=== PATIENT | female | born 1970 | race Caucasian/White ===

== ENCOUNTER 2018-04-12 05:51 | Day surgery (SDC) | END 2018-04-12 10:40 | disposition home or self-care (01) ==

== ENCOUNTER 2018-05-20 18:41 | Emergency (ER) | payer OTHER ==
[~2018-05-20] VITALS: Ht 149.9 cm; Wt 57.4 kg
[~2018-05-20 18:41] MED LIST: FAMO-96 PO
[2018-05-20 18:44] VITALS: Ht 149.9 cm; Wt 57.4 kg
[2018-05-20] MEDS ORDERED: ONDANSETRON 4 MG INJ IV STA (21:29)
[2018-05-20] MEDS ORDERED: LIDOCAINE/MYLANTA 40 ML BTL PO STA (21:29)
--- NOTE | 2018-05-20 23:33 | ERD ---
ER Documentation Chief Complaint Chief Complaint epigastric pain for months, worse today w/ dizziness. no n/v/d HPI 47-year-old female with a history of recurrent gastritis who presents for evaluation of epigastric pain. Patient is currently taking a PPI for pain, she denies fever, she denies nausea vomiting. She had a recent endoscopy, which according to her only had gastritis, she has history of a cholecystectomy. She denies urinary symptoms. ROS All systems reviewed and are negative except as per history of present illness. Medications Home Meds Active Scripts Famotidine* (Pepcid*) 20 Mg Tablet, 20 MG PO BID for 30 Days, TAB Prov:ROBERT ESPARZA MD 05/20/18 Famotidine* (Pepcid*) 20 Mg Tablet, 20 MG PO BID for 15 Days, TAB Prov:RUBENS JARRELL 07/04/15 Allergies Allergies: Coded Allergies: No Known Allergy (Unverified , 07/04/15) PMhx/Soc History of Surgery: Yes (CHOLECYSTECTOMY/EGD) Anesthesia Reaction: No Hx Neurological Disorder: No Hx Respiratory Disorders: No Hx Cardiac Disorders: No Hx Psychiatric Problems: No Hx Miscellaneous Medical Probl: Yes (GASTRITIS) Hx Alcohol Use: No Hx Substance Use: No Hx Tobacco Use: No Smoking Status: Never smoker Physical Exam Vitals Vital Signs Date Temp Pulse Resp B/P (MAP) Pulse Ox O2 O2 Flow FiO2 Time Delivery Rate 05/20/18 97.3 74 16 132/75 99 18:44 (94) Physical Exam Const: No acute distress Head: Atraumatic Eyes: Normal Conjunctiva ENT: Normal External Ears, Nose and Mouth. Neck: Full range of motion. No meningismus. Resp: Clear to auscultation bilaterally Cardio: Regular rate and rhythm, no murmurs Abd: Soft, mild epigastric tenderness, non distended. Normal bowel sounds Skin: No petechiae or rashes Back: No midline or flank tenderness Ext: No cyanosis, or edema Neur: Awake and alert Psych: Normal Mood and Affect Result Diagram: 05/20/18214805/20/182148 Results 24 hrs Laboratory Tests Test 05/20/18 21:49 05/20/18 21:58 White Blood Count 9.4 10^3/ul Red Blood Count 4.24 10^6/ul Hemoglobin 13.1 g/dl Hematocrit 38.9 % Mean Corpuscular Volume 91.7 fl Mean Corpuscular Hemoglobin 30.9 pg Mean Corpuscular Hemoglobin Concent 33.7 g/dl Red Cell Distribution Width 12.8 % Platelet Count 281 10^3/UL Mean Platelet Volume 10.0 fl Immature Granulocytes % 0.200 % Neutrophils % 50.9 % Lymphocytes % 39.5 % Monocytes % 6.1 % Eosinophils % 2.9 % Basophils % 0.4 % Nucleated Red Blood Cells % 0.0 /100WBC Immature Granulocytes # 0.020 10^3/ul Neutrophils # 4.8 10^3/ul Lymphocytes # 3.7 10^3/ul Monocytes # 0.6 10^3/ul Eosinophils # 0.3 10^3/ul Basophils # 0.0 10^3/ul Nucleated Red Blood Cells # 0.0 10^3/ul Prothrombin Time 12.4 Sec Prothrombin Time Ratio 1.0 INR International Normalized Ratio 0.91 Urine Color YELLOW Urine Clarity SLIGHTLY CLOUDY Urine pH 5.0 Urine Specific [place] 1.023 Urine Ketones NEGATIVE mg/dL Urine Nitrite NEGATIVE mg/dL Urine Bilirubin NEGATIVE mg/dL Urine Urobilinogen NEGATIVE mg/dL Urine Leukocyte Esterase NEGATIVE David/ul Urine Microscopic RBC 1 /HPF Urine Microscopic WBC 1 /HPF Urine Squamous Epithelial Cells MODERATE /HPF Urine Bacteria FEW /HPF Urine Mucus FEW /HPF Urine Hemoglobin NEGATIVE mg/dL Urine Glucose NEGATIVE mg/dL Urine Total Protein NEGATIVE mg/dl Sodium Level 140 mmol/L Potassium Level 3.7 mmol/L Chloride Level 103 mmol/L Carbon Dioxide Level 27 mmol/L Anion Gap 10 Blood Urea Nitrogen 14 mg/dl Creatinine 0.48 mg/dl Est Glomerular Filtrat Rate mL/min > 60 mL/min Glucose Level 95 mg/dl Calcium Level 9.0 mg/dl Total Bilirubin 0.1 mg/dl Direct Bilirubin 0.00 mg/dl Indirect Bilirubin 0.1 mg/dl Aspartate Amino Transf (AST/SGOT) 39 IU/L Alanine Aminotransferase (ALT/SGPT) 49 IU/L Alkaline Phosphatase 101 IU/L Troponin I < 0.012 ng/ml Total Protein 7.5 g/dl Albumin 4.2 g/dl Globulin 3.30 g/dl Albumin/Globulin Ratio 1.27 Lipase 62 U/L POC Beta HCG, Qualitative NEGATIVE Current Medications Medications Dose Sig/Vesta Start Time Status Last (Trade) Ordered Route PRN Stop Time Admin Dose Reason Admin Ondansetron 4 mg ONCE STAT 05/20/18 DC 05/20/18 HCl (Zofran IV 21:29 22:15 Inj) 05/20/18 21:30 40 ml ONCE STAT 05/20/18 DC 05/20/18 Miscellaneous PO 21:29 22:15 Medication 05/20/18 21:30 (Gi Cocktail (2)) Procedures/MDM 47-year-old female resents for evaluation of epigastric pain. Her abdominal pain stabilized in the ED, CT abdomen pelvis did not show any definitive sign of small bowel obstruction, or intra-abdominal infection, her labs were overall unremarkable, with LFTs within normal limits, and a negative lipase, I recommended she add Pepcid to her regimen, and follow-up with PMD, strict precautions given for any worsening abdominal pain any fever, or any other concerning symptoms at discharge patient was in no acute distress per EKG: Rate/Rhythm: Normal Sinus Rhythm QRS, ST, T-waves: No changes consistent w/ acute ischemia Impression: No evidence of ischemia or arrhythmia Departure Diagnosis: Primary Impression: Abdominal pain Abdominal location: unspecified location Qualified Codes: R10.9 - Unspecified abdominal pain Condition: Stable ROBERT ESPARZA MD May 20, 2018 23:33
[2018-05-20] MEDS ORDERED: FAMO-96 PO (23:37)
[2018-05-21 00:25] VITALS: BP 118/74; PULSE 63; RESP 18
== END 2018-05-21 00:40 | disposition home or self-care (01) ==
LOC: E/R 18:41
DX: R10.13 Epigastric pain (principal); R11.2 Nausea with vomiting, unspecified
CPT/HCPCS: 36415; 74176; 76705; 80053; 81001; 81025; 83690; 84484; 85025; 85610; 93005; 96374; J2405; Z7502; Z7610; 81003

== ENCOUNTER 2018-08-13 19:33 | Emergency (ER) | payer SELFPAY ==
[~2018-08-13] VITALS: Ht 154.9 cm; Wt 58.2 kg
[2018-08-13 19:43] VITALS: BP 184/82; PULSE 124; RESP 19; Ht 154.9 cm; Wt 58.2 kg
== END 2018-08-13 20:32 | disposition left against medical advice (07) ==
LOC: E/R 19:33
DX: Z53.21 Procedure and treatment not carried out due to patient leaving prior to being seen by health care provider (principal)